=== PATIENT | female | born 1975 ===

== ENCOUNTER 2022-04-07 05:21 | Day surgery (SDC) | payer OTHER ==
[~2022-04-07] VITALS: Ht 160 cm; Wt 81.6 kg
[~2022-04-07 05:21] MED LIST: SYNTHROID50 MCG PO
== END 2022-04-07 11:30 | disposition home or self-care (01) ==
LOC: CIR.AMB 05:21
PROVIDERS: ATTEND Orthopaedic Surgery
DX: M75.111 Incomplete rotator cuff tear or rupture of right shoulder, not specified as traumatic (principal); M24.111 Other articular cartilage disorders, right shoulder; Z20.822 Contact with and (suspected) exposure to COVID-19; M75.41 Impingement syndrome of right shoulder; M75.31 Calcific tendinitis of right shoulder; Z88.8 Allergy status to other drugs, medicaments and biological substances; J45.909 Unspecified asthma, uncomplicated; Z86.16 Personal history of COVID-19; E03.9 Hypothyroidism, unspecified